=== PATIENT | female | born 1990 | race Caucasian/White ===

== ENCOUNTER 2017-08-01 11:34 | Day surgery (SDC) | payer BC ==
[~2017-08-01 11:34] MED LIST: Buffered Lidocaine 0.9% SYRIN* 5 ML/SYR SYRINGE INTRADERM ONE; Dexamethasone IV* 4 MG/ML 1 ML (4 MG) IV SLOW PU ONE; Lidocaine 2% PF * 5 ML VIAL ONE; Metoclopramide TAB* 10 MG PO ONE; Midazolam* 1 MG/ML 2 ML VIAL (2 MG) ONE; Ondansetron INJ* 2 MG/ML VIAL ONE; Propofol* 10 MG/ML 20 ML BTL IV PUSH ONE; fentaNYL* 50 MCG/ML 2 ML VIAL (100 MCG VIAL) ONE
[2017-08-01] MEDS ORDERED: Dexamethasone IV* 4 MG/ML 1 ML (4 MG) ONE (11:39)
[2017-08-01] MEDS ORDERED: Buffered Lidocaine 0.9% SYRIN* 5 ML/SYR SYRINGE ONE (11:39)
[2017-08-01] MEDS ORDERED: Metoclopramide TAB* 10 MG ONE (11:39)
[2017-08-01] MEDS ORDERED: HYDROcodone/ACETAMIN 5-325 MG* 1 TAB PO PRN (12:12)
[2017-08-01] MEDS ORDERED: Ondansetron ODT TAB* 4 MG PO PRN (12:12)
[2017-08-01] MEDS ORDERED: Acetaminophen TAB* 325 MG PO PRN (12:12)
[2017-08-01] MEDS ORDERED: Scopolamine 1.5 mg* PATCH TRANSDERM PRN (12:12)
[2017-08-01] MEDS ORDERED: fentaNYL* 50 MCG/ML 2 ML VIAL (100 MCG VIAL) IV PRN (12:12)
[2017-08-01] MEDS ORDERED: HYDROmorphone* 1 MG/ML 1 ML SYR IV PRN (12:12)
[2017-08-01] MEDS ORDERED: DiMENhydriNATE IV* 50 MG/ML VIAL IV PUSH PRN (12:12)
[2017-08-01] MEDS ORDERED: DiMENhydriNATE IV* 50 MG/ML VIAL ONE (13:33)
[2017-08-01] MEDS ORDERED: Scopolamine 1.5 mg* PATCH ONE (13:39)
[2017-08-01] MEDS ORDERED: fentaNYL* 50 MCG/ML 2 ML VIAL (100 MCG VIAL) ONE (13:39)
[2017-08-01] MEDS ORDERED: HYDROcodone/ACET. 7.5/325 LIQ* 15 ML UDC ONE (13:57)
[2017-08-01 14:44] VITALS: BP 129/83
--- NOTE | 2017-08-01 21:41 | OP ---
DATE OF OPERATION: 08/01/17 - [facility] DATE OF : 89 SURGEON: Ezra Thakur MD ANESTHESIOLOGIST: Ashwini Blanco MD ANESTHESIA: General PRE-OP DIAGNOSIS: Chronic tonsillitis. POST-OP DIAGNOSIS: Chronic tonsillitis. OPERATIVE PROCEDURE: Tonsillectomy. BRIEF HISTORY: This 27-year-old with symptoms of chronic recurring tonsillitis elected for surgical management. DESCRIPTION OF PROCEDURE: The patient was taken to the operating room, general anesthesia was given, the patient intubated. Tongue, mandible, and soft palate were retracted. Coblator was used to remove the tonsil tissues. Once hemostasis obtained, the patient was awakened and sent to recovery room in stable condition. Instrument and sponge count correct. Blood loss minimal. [id number] #: [id number] MTDD
[2017-08-04] MEDS ORDERED: Scopolomine PATCH Remove* 1 NOTE MISC PATCH OFF ONE (12:13)
== END 2017-08-01 14:49 | disposition home or self-care (01) ==
LOC: OR 11:34
PROVIDERS: ATTEND Otolaryngology
DX: J35.01 Chronic tonsillitis (principal)
CPT/HCPCS: 81025; 88304; A9270-GY; J1100; J1240; J2250; J2405; J2704; J3010